=== PATIENT | male | born 1945 | race Caucasian/White ===

== ENCOUNTER 2021-04-18 18:44 | Emergency (ER) | payer OTHER, MEDICARE, SELFPAY ==
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
[2021-04-18 18:52] VITALS: BP 155/78; PULSE 88; RESP 16; TEMP 36.8; O2SAT 93
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
[2021-04-18 21:36] VITALS: BP 191/60; PULSE 81; RESP 18; O2SAT 93
== END 2021-04-18 21:26 | disposition home or self-care (01) ==
PROVIDERS: Emergency Provider General Practice; PCP Internal Medicine
DX: S20.212A Contusion of left front wall of thorax, initial encounter (principal); V89.2XXA Person injured in unspecified motor-vehicle accident, traffic, initial encounter
CPT/HCPCS: 71046; 99283